=== PATIENT | male | born 1965 | race Caucasian/White ===

== ENCOUNTER 2018-12-31 04:54 | Emergency (ER) | payer MEDICAID ==
[~2018-12-31] VITALS: Ht 154.9 cm; Wt 74.8 kg
[~2018-12-31 04:54] MED LIST: GLUCOPHAGE1000 MG PO
[2018-12-31] MEDS ORDERED: LIPITOR10 MG PO (05:17)
[2018-12-31 06:02] LABS: ABSOLUTE BASOPHILS 0.1 thou/uL (0.0-0.2); ABSOLUTE EOSINOPHILS 0.3 thou/uL (0.0-0.7); ABSOLUTE LYMPHOCYTES 3.1 thou/uL (0.8-5.3); ABSOLUTE MONOCYTES 0.8 thou/uL (0.0-1.2); ABSOLUTE NEUTROPHILS 4.5 thou/uL (1.6-8.1); BASOPHILS 1.5 %; EOSINOPHILS 3.4 %; HEMATOCRIT 29.8 % (42.0-52.0); HEMOGLOBIN 9.4 gm/dL (14.0-18.0); LYMPHOCYTES 35.1 %; MCHC 31.8 g/dL (28.0-37.0); MCV 75.7 fL (80.0-100.0); MONOCYTES 9.2 %; NUCLEATED RBCS 0 /100WBC; PLATELET COUNT* 427 thou/uL (150-400); POLYS 50.8 %; RBC 3.93 mil/uL (4.50-6.00); RDW-CV 19.1 % (10.5-14.5); WBC 8.9 thou/uL (4.0-11.0)
[2018-12-31 06:05] LABS: AMP/METHAMP Negative (Negative); BARBITURATES Negative (Negative); BENZODIAZEPINES Negative (Negative); CALCIUM 8.6 mg/dL (8.5-10.1); COCAINE Negative (Negative); CREATININE 0.6 mg/dL (0.6-1.3); METHADONE Negative (Negative); OPIATES Negative (Negative); PCP Negative (Negative); POTASSIUM 3.9 mmol/L (3.5-5.1); THC Negative (Negative)
[2018-12-31 06:17] LABS: TOTAL BILIRUBIN 0.1 mg/dL (<0.1-1.0); TOTAL PROTEIN 7.1 g/dL (6.4-8.2)
[2018-12-31 06:37] LABS: ALCOHOL 200 mg/dL (<10); SALICYLATE < 2.8 mg/dL (2.8-20.0)
[2018-12-31 06:38] LABS: ACETAMINOPHEN < 2 ug/mL (10-30)
[2018-12-31 11:46] VITALS: BP 143/85
--- NOTE | 2019-01-01 16:58 | EKG ---
[place] [address] ELECTROCARDIOGRAM REPORT Name: TERESITA JUNIOR Room: [facility]#: [id number] Admission: 12/31/18 Attend Phys: Discharge: 12/31/18 Date of : 65 Report #: [id number] THIS REPORT FOR: //name// [facility] ED Test Date: 2018-12-31 Test Time: 05:24:31 Pat Name: TERESITA JUNIOR Department: Room: Gender: Outside Sales Advertising Executive: : 1965 Requested By: Daisha Saini Order Number: [id number] MD: Frank Sesay Measurements Intervals [place] Rate: 74 P: 37 WV: 189 QRS: -100 QRSD: 163 T: 2 QT: 403 QTc: 448 Interpretive Statements Sinus rhythm Probable left atrial enlargement RBBB and LAFB No previous ECG available for comparison Electronically Signed On 01-01-2019 16:57:51 CDT by Frank Sesay [email or web address] <ELECTRONICALLY SIGNED> By: Frank Sesay MD, [facility] 01/01/19 1657 [id number] [id number] Frank Sesay MD, [facility] /EPI
== END 2018-12-31 11:47 | disposition home or self-care (01) ==
LOC: M.ERS 04:54
PROVIDERS: Emergency Medicine
DX: F32.9 Major depressive disorder, single episode, unspecified (principal); G89.4 Chronic pain syndrome; R45.851 Suicidal ideations; E11.9 Type 2 diabetes mellitus without complications; Z86.14 Personal history of Methicillin resistant Staphylococcus aureus infection; Z86.19 Personal history of other infectious and parasitic diseases; Z79.899 Other long term (current) drug therapy

== ENCOUNTER 2020-10-28 12:57 | Inpatient (IN) | payer MEDICARE, MEDICAID ==
[~2020-10-28] VITALS: Ht 149.9 cm; Wt 81.6 kg
[~2020-10-28 12:57] MED LIST changes: +LIPITOR80 MG PO
[2020-10-28 13:13] VITALS: BP 117/69
[2020-10-28] MEDS ORDERED: TOPROL XL50 MG PO (13:17)
[2020-10-28 15:46] LABS: ABSOLUTE BASOPHILS 0.2 thou/uL (0.0-0.2); ABSOLUTE LYMPHOCYTES 1.5 thou/uL (0.8-5.3); ABSOLUTE MONOCYTES 1.6 thou/uL (0.0-1.2); ABSOLUTE NEUTROPHILS 14.5 thou/uL (1.6-8.1); BASOPHILS 0.8 %; EOSINOPHILS 0.3 %; HEMATOCRIT 29.1 % (42.0-52.0); HEMOGLOBIN 8.9 gm/dL (14.0-18.0); LYMPHOCYTES 8.4 %; MCH 22.4 pg (26.0-34.0); MCHC 30.7 g/dL (28.0-37.0); MCV 73.1 fL (80.0-100.0); MONOCYTES 9.2 %; MPV 7.4 fl. (7.2-11.1); NUCLEATED RBCS 0 /100WBC; PLATELET COUNT* 551 thou/uL (150-400); POLYS 81.3 %; RBC 3.98 mil/uL (4.50-6.00); RDW-CV 20.9 % (10.5-14.5); WBC 17.9 thou/uL (4.0-11.0)
[2020-10-28 15:56] LABS: CALCIUM 7.9 mg/dL (8.5-10.1); CREATININE 0.7 mg/dL (0.6-1.3); POTASSIUM 3.3 mmol/L (3.5-5.1)
[2020-10-28 16:01] LABS: ALBUMIN 2.1 g/dL (3.4-5.0); TOTAL BILIRUBIN 0.3 mg/dL (<0.1-1.0); TOTAL PROTEIN 7.9 g/dL (6.4-8.2)
[2020-10-28 16:41] LABS: POLYCHROMASIA 1+
[2020-10-28 16:42] LABS: HYPOCHROMASIA 2+; LARGE PLATELETS OCCASIONAL; MICROCYTES 1+; PLATELET ESTIMATE ADEQUATE
[2020-10-28 16:43] LABS: POIKILOCYTOSIS 1+
--- NOTE | 2020-10-28 17:45 | NUR ---
PT REFUSES TO GET INTO A PATIENT GOWN. THIS NURSE EXPLAINED THE IMPORTANCE OF WEARING A GOWN TO THE PATIENT. PT YELLING AND SAYING "I WILL NOT GET INTO A GOWN, I AM FINE IN MY SWEATSHIRT".
[2020-10-28 18:27] VITALS: BP 116/68
--- NOTE | 2020-10-28 19:04 | NUR ---
RECEIVED REPORT FROM OSORIO SORIA. NEW ADMIT. PT ANXIOUS. IV VANC RUNNING AT THIS TIME. CALL LIGHT WITHIN REACH. WILL CONTINUE TO MONITOR.
[2020-10-29 04:59] LABS: PREALBUMIN 8.9 mg/dL (18.0-35.7)
--- NOTE | 2020-10-29 05:08 | NUR ---
PATIENT IN ROOM AT SHIFT CHANGE. PT ALERT/ORIENTED X4. PT SAID HE LIVES WITH BROTHER AND SISTER INLDANNIE AND TRIPPED OVER HER ELDERLY DOG AND HURT HIS RT HEEL. PT HAS VERTICAL SPLIT ON HEEL AND SURROUNDING CELLULITIS. PT SAID WHEN HE LEFT TO COME TO ER HIS BROTHER SAID HE SHOULD NOT COME BACK AND FIND SOMEWHERE ELSE TO LIVE. PT SAID HE IS NOW HOMELESS. PT WITH VANC INFUSING IN RT FOREARM PER DR ORDER. IV LINE BEEPING AT BEGINNING OF SHIFT. TOUR GUIDE INSTRUCTED TO CHANGE IV LINE HOWEVER PT REFUSED TO HAVE ANOTHER LIKE STARTED. PT HAD REMOVED DSG PUT IN PLACE BY ER. NEW DSG PLACED AFTER PT SHOWERED THEN HE REMOVED IT. PT REFUSED TO KEEP ELEVATED. PT WITH HX OF MRSA; PLACED IN ISOLATION. PT ON SCHEDULED TYLENOL AND TORADOL. MORPHINE 8MG IV GIVEN Q4H FOR PAIN. PT SAID HE IS NON COMPLIANT WITH HIS DIABETES; REQUESTING FOOD ALL NIGHT; EDUCATION GIVEN. PT ANXIOUS AND FRUSTRATED SAYING NOTHING WOULD WORK FOR PAIN EXCEPT HYDROCODONE. PT ORIENTED TO ROOM/POLICIES AND VERBALIZES UNDERSTANDING. FREQUENTLY USED ITEMS AND CALL LIGHT WITHIN REACH. SIDERAILS UPX2. WILL CONTINUE TO MONITOR.
--- NOTE | 2020-10-29 05:19 | NUR ---
PATIENT REFUSING AT THIS TIME TO SIGN FALL AGREEMENT AND TO WEAR YELLOW SOCKS, YELLOW BAND AND BED ALARM ON MAKING HIM A FALL RISK. PT SAID HE HAS RIGHTS TO GET UP AND MOVE AROUND HE WANTS HE DOES THIS AT HOME. EDUCATION GIVEN. PT ALSO IS REFUSING AT THIS TIME TO HAVE PICTURE TAKEN OF RT HEEL. EXPLAINED TO PT THIS IS PUT ON CHART TO GUAGE HEALING ANTIBIOTICS ARE GIVEN. PT SAID HE IS IN TOO MUCH PAIN TONIGHT TO HAVE PICTURE TAKEN AND WILL NOT AGREE UNTIL HE DISCUSSES PAIN MEDICATION WITH THIS MORNING. WILL CONTINUE TO MONITOR.
[2020-10-29 05:31] LABS: CALCIUM 8.1 mg/dL (8.5-10.1); POTASSIUM 3.8 mmol/L (3.5-5.1); TOTAL BILIRUBIN 0.2 mg/dL (<0.1-1.0); TOTAL PROTEIN 7.8 g/dL (6.4-8.2)
[2020-10-29 07:50] VITALS: BP 127/78
[2020-10-29 07:55] LABS: ABSOLUTE BASOPHILS 0.2 thou/uL (0.0-0.2); ABSOLUTE EOSINOPHILS 0.3 thou/uL (0.0-0.7); ABSOLUTE LYMPHOCYTES 2.3 thou/uL (0.8-5.3); ABSOLUTE MONOCYTES 1.4 thou/uL (0.0-1.2); ABSOLUTE NEUTROPHILS 9.2 thou/uL (1.6-8.1); BASOPHILS 1.3 %; EOSINOPHILS 2.5 %; HEMATOCRIT 33.5 % (42.0-52.0); LYMPHOCYTES 17.4 %; MCH 22.1 pg (26.0-34.0); MCHC 29.9 g/dL (28.0-37.0); MCV 73.9 fL (80.0-100.0); MONOCYTES 10.4 %; MPV 7.9 fl. (7.2-11.1); NUCLEATED RBCS 0 /100WBC; POLYS 68.4 %; RBC 4.53 mil/uL (4.50-6.00); RDW-CV 20.5 % (10.5-14.5); WBC 13.4 thou/uL (4.0-11.0)
[2020-10-29 08:00] LABS: PLATELET COUNT* 356 thou/uL (150-400)
--- NOTE | 2020-10-29 11:02 | NUR ---
WOUND NURSE: PATIENT SEEN TO ADDRESS 2 LESIONS ON THE RIGHT HEEL. ONE ON THE MEDIAL ASPECT MEASURES 2.7 X 1.5 CM. UNABLE TO MEASURE DEPTH THE EPITHELIAL LAYER IS INTACT AND APPEARS PALE YELLOW TO LIGHT PINK IN COLOR, AND FEELS BOGGY. THE POSTERIOR LESION MEASURES 2.4 X 0.8 CM. BLACKENED ESCHAR COVERS THE WOUND BED. FOOT IS COLD BUT REDDENED. UNABLE TO PALPATE PEDAL PULSES. ATTEMPTED TO DOPPLER PULSES, BUT ABSENT ON RIGHT, MONOPHASIC AND DISTANT ON THE LEFT. PATIENT REPORTS HE WENT TO [place] 2 WEEKS AGO, THEN WENT TO [facility] LAST WEEK, BUT WAS DISSATISFIED WITH BOTH. PATIENT STATES HE HAD AN MRI OF THE AFFECTED FOOT AT [facility]. WOUNDS WERE CLEANSED WITH SOAP AND WATER, RINSED, THEN PATTED DRY. APPLIED AQUACEL AG UNDER ABD, THEN WRAPPED WITH KERLEX ROLL GAUZE AND SECURED WITH TAPE. PATIENT INSTRUCTED ON MEASURES TO PROMOTE HEALING, I.E., NUTRITIONAL NEEDES, S/S INFECTION, IMPORTANCE OF GOOD BG CONTROL. PATIENT DIPS SNUFF. INSTRUCTED HIM THAT SNUFF IS A VASOCONSTRICTOR AND WILL IMPEDE WOUND HEALING. PATIENT STATES HE UNDERSTANDS. ALSO DISCUSSED OFFLOADING THE WOUND.
--- NOTE | 2020-10-29 12:01 | NUR ---
Pt is A&O. Was living at home with brother and HELLEN, apparently he is unable to return there at [place]. CM to discuss dispo plans later, wound care seeing at this time. Pt is normally independent. Non compliant with his diabetes, refusing cares while here. IVABX. Podiatry and Wound care following. CM following for dispo needs.
[2020-10-29 16:02] VITALS: BP 144/96
--- NOTE | 2020-10-29 20:38 | NUR ---
Pt remained A&O x4 for entire shift. Pt pleasant with staff. Vital signs stable. Pt allowed wound care to take pictures and dress wound this morning. Pt also seen by podiatry at bedside. Pt cooperative with staff but non-compliant at times. Pt took off part of the bandage that was placed. Pt complains of pain in the right foot and given meds per AUG. Pt noted better pain control with oral pain medication. Bed in low position, call light within reach.
[2020-10-29 21:00] VITALS: BP 104/63
[2020-10-30 03:06] LABS: GLYCOHEMOGLOBIN (HGB A1C) 8.5 % (4.8-5.6)
[2020-10-30 05:32] LABS: CALCIUM 8.1 mg/dL (8.5-10.1); POTASSIUM 4.3 mmol/L (3.5-5.1)
--- NOTE | 2020-10-30 06:24 | NUR ---
PATIENT HAS SLEPT SOME DURING THE NIGHT, BUT RESTLESS PART OF THE NIGHT. VSS ON RA. PATIENT UP AD-KRISTINA AND REFUSES TO SIGN FALL RISK PAPERWORK, REFUSES BED ALARM, REFUSES FALL BAND, REFUSING TO WEAR YELLOW SOCKS AND REFUSING ASSISTANCE WHEN UP. PATIENT REFUSING LABS THIS AM AND OFFSET PRESS OPERATOR WAS ONLY ABLE TO DRAW ONE TUBE. UNABLE TO OBTAIN IV ACCESS DURING SHIFT. DR. CHINCHILLA NOTIFIED. PATIENT VERY NON COMPLIANT WITH CARES. PATIENT HAS REMAINED NPO SINCE MIDNIGHT D/T SCHEDULED PROCEDURE TODAY. DRESSING TO RIGHT FOOT IS C/D/I. PATIENT INSTRUCTED TO USE CALL LIGHT WHEN NEEDING ASSISTANCE AND HOURLY ROUNDS MADE. WILL CONTINUE WITH PLAN OF CARE AND NURSING TO MONITOR.
[2020-10-30 08:10] VITALS: BP 140/81
[2020-10-30 08:17] VITALS: BP 140/81
--- NOTE | 2020-10-30 12:04 | NUR ---
Pt refusing to lay flat for arteriogram this morning, to speak with. Continue IVABX, ID consult. MRI of foot. Picc line to be placed. Pt will likely need skilled at dc, if he opts to participate in his POC vs. discharge. CM to try and reach Pt's family to confirm that he is not allowed to return to their home at dc. Following.
[2020-10-30 16:49] LABS: ABSOLUTE BASOPHILS 0.1 thou/uL (0.0-0.2); ABSOLUTE EOSINOPHILS 0.4 thou/uL (0.0-0.7); ABSOLUTE LYMPHOCYTES 1.7 thou/uL (0.8-5.3); ABSOLUTE NEUTROPHILS 8.5 thou/uL (1.6-8.1); BASOPHILS 1.1 %; EOSINOPHILS 3.2 %; HEMATOCRIT 25.3 % (42.0-52.0); LYMPHOCYTES 14.6 %; MCH 22.2 pg (26.0-34.0); MCHC 30.5 g/dL (28.0-37.0); MCV 72.9 fL (80.0-100.0); MONOCYTES 8.4 %; MPV 7.4 fl. (7.2-11.1); NUCLEATED RBCS 0 /100WBC; POLYS 72.7 %; RBC 3.47 mil/uL (4.50-6.00); RDW-CV 19.9 % (10.5-14.5); WBC 11.7 thou/uL (4.0-11.0)
[2020-10-30 17:35] LABS: HEMOGLOBIN 7.7 gm/dL (14.0-18.0); PLATELET COUNT* 483 thou/uL (150-400)
--- NOTE | 2020-10-30 17:54 | NUR ---
PATIENT RESTING IN BED. PATIENT WENT FOR IR PROCEDURE THIS AM AND REFUSED IV AND TREATMENT AND WAS RETURNED TO ROOM. PATIENT SPOKE WITH AUGUSTINE AND WENT BACK TO IR AND WAS COOPERATIVE FOR PROCEDURE. PATIENT HAD PICC LINE PLACED. PATIENT REMAINED IN BED X 3 HOURS POST PROCEDURE AND SLEPT. PATIENT AWAKE THIS EVENIGN AND EATING DINNER. PATIENT AGAIN REFUSED MRI THIS EVENING. PATIENT IS HAVING COMPLAINTS OF PAIN, OXYCODONE GIVEN. GROIN SITE REMAINS SOFT AND DRY. WILL CONTINUE TO MONITOR.
[2020-10-30 17:59] LABS: ANISOCYTOSIS 1+; HYPOCHROMASIA 1+; MICROCYTES 1+; PLATELET ESTIMATE INCREASED
[2020-10-30 20:10] VITALS: BP 136/78
--- NOTE | 2020-10-30 20:10 | NUR ---
PT CRYING STATING HE NEEDS SOMETHING FOR PAIN. PICKING AT R HEEL WOUND, HAS TAKEN DRESSING OFF OF R FOOT AND UP AMBULATING, PACING BACK AND FORTH. PT WOULD NOT LET ME REDRESS HIS WOUND AT THIS TIME, "IM IN TOO MUCH PAIN, NONE OF THIS IS WORKING". IV MORPHINE GIVEN ORDERED, PT CONTINUES TO STATE "ITS NOT WORKING ITS NOT WORKING". INSTRUCTED PT TO ELEVATE FOOT ON PILLOW AND ALLOW MEDICINE TIME TO WORK. SNACKS GIVEN REQUESTED. L UPPER ARM PICC LINE DRSG ALMOST COMPLETELY TAKEN OFF- PT STATES I DIDNT DO THAT, THIS THING IS NOT GOOD ANYWAY. INSTRUCTED PT ONRISK FOR INFECTION IN PICC IF DRSG NOT KEPT INTACT AND NEED FOR ACCESS FOR IV ABX AND IV PAIN MEDS THROUGH PICC LINE. PICC SITE CLEANSED AND NEW DRSG APPLIED. WILL CONTINUE TO MONITOR AND PROVIDE CARES AND MEDS NEEDED AND ORDERED.
[2020-10-31 00:34] VITALS: BP 117/75
[2020-10-31 05:26] LABS: ABSOLUTE EOSINOPHILS 0.5 thou/uL (0.0-0.7); ABSOLUTE LYMPHOCYTES 1.9 thou/uL (0.8-5.3); ABSOLUTE MONOCYTES 1.2 thou/uL (0.0-1.2); ABSOLUTE NEUTROPHILS 8.4 thou/uL (1.6-8.1); BASOPHILS 0.4 %; HEMATOCRIT 24.4 % (42.0-52.0); HEMOGLOBIN 7.7 gm/dL (14.0-18.0); LYMPHOCYTES 15.6 %; MCH 22.9 pg (26.0-34.0); MCHC 31.5 g/dL (28.0-37.0); MCV 72.8 fL (80.0-100.0); MONOCYTES 10.3 %; MPV 7.8 fl. (7.2-11.1); NUCLEATED RBCS 0 /100WBC; PLATELET COUNT* 498 thou/uL (150-400); POLYS 69.7 %; RBC 3.36 mil/uL (4.50-6.00); RDW-CV 20.4 % (10.5-14.5); WBC 12.1 thou/uL (4.0-11.0)
--- NOTE | 2020-10-31 05:41 | NUR ---
PT CALMED SLIGHTLY AFTER START OF SHIFT, RECEIVING IV AND PO PAIN MED ORDERED. ABX GIVEN IN LUCIAN PICC ORDERED. AM LABS DRAWN. PT REMOVED L GROIN DRESSING OVERNIGHT BUT SITE HAS NO SIGNS OF BRUISING OR BLEEDING. ALLOWED THIS NURSE TO PUT GAUZE DRESSING WITH ALEXIS WRAP OVER IT ON HIS R FOOT WOUND. NONCOMPLIANT WITH RECOMMENDATIONS FOR ELEVATING FOOT, WEARING PRAFO BOOT. REMAINS ON CONTACT ISOLATION FOR MRSA HX. CALL LITE IN EASY REACH, ABLE TO USE CALL LITE AND MAKE NEEDS KNOWN.
[2020-10-31 05:45] LABS: ALBUMIN 1.9 g/dL (3.4-5.0); CALCIUM 7.9 mg/dL (8.5-10.1); CREATININE 1.2 mg/dL (0.6-1.3); POTASSIUM 4.5 mmol/L (3.5-5.1); TOTAL BILIRUBIN 0.2 mg/dL (<0.1-1.0); TOTAL PROTEIN 7.3 g/dL (6.4-8.2)
[2020-10-31 07:55] VITALS: BP 136/83
[2020-10-31] MEDS ORDERED: AMARYL1 MG PO (15:34)
[2020-10-31] MEDS ORDERED: CELEXA 20 MG TA20 MG PO (15:35)
[2020-10-31] MEDS ORDERED: SPIRONOLACTONE25 MG PO (15:35)
[2020-10-31] MEDS ORDERED: VITAMIN D3125 MC1 PO (15:36)
[2020-10-31] MEDS ORDERED: SKELAXIN 800 M800 MG PO (15:36)
[2020-10-31 16:00] VITALS: BP 138/79
--- NOTE | 2020-10-31 18:48 | NUR ---
PATIENT RESTING IN BED. PATIENT IS UP AD KRISTINA IN ROOM. PATIENT HAS COMPLAINTS OF FOOT PAIN TREATED ADEQUATELY WITH PERCOCET. PATIENT TRIED OXY IR THIS AFTERNOON BUT PREFERED THE PERCOCET, DR TORRES NOTIFIED AND ORDERS RECEIVED. PATIENT HAD MRI THIS AM WITHOUT INCIDENT. PATIENT CURRENTLY HAS DRESSING TO RIGHT FOOT BUT REMOVES FREQUENTLY. PATIENT DENIES ANY NEEDS AT THIS TIME. CALL LIGHT WITHIN REACH.
[2020-10-31 20:15] VITALS: BP 137/85
[2020-11-01 04:55] LABS: ABSOLUTE EOSINOPHILS 0.6 thou/uL (0.0-0.7); ABSOLUTE MONOCYTES 1.2 thou/uL (0.0-1.2); BASOPHILS 0.3 %; EOSINOPHILS 4.3 %; HEMATOCRIT 26.5 % (42.0-52.0); HEMOGLOBIN 8.1 gm/dL (14.0-18.0); MCH 22.4 pg (26.0-34.0); MCHC 30.6 g/dL (28.0-37.0); MCV 73.1 fL (80.0-100.0); MONOCYTES 9.2 %; MPV 7.5 fl. (7.2-11.1); NUCLEATED RBCS 0 /100WBC; PLATELET COUNT* 553 thou/uL (150-400); POLYS 70.2 %; RBC 3.63 mil/uL (4.50-6.00); RDW-CV 20.4 % (10.5-14.5); WBC 12.8 thou/uL (4.0-11.0)
--- NOTE | 2020-11-01 05:08 | NUR ---
PT REMAINS ON CONTACT ISOLATION FOR HX MRSA. R FOOT DIABETIC WOUND/CELLULITIS-WOUND CLEANSED AND DRESSED AT BEGINNING OF SHIFT BUT PT TOOK DRESSING OFF AFTER ABOUT AN HOUR STATING IT CAUSED HIS FOOT TO "BURN". EDUCATION GIVEN ABOUT ELEVATING R FOOT, NOT TOUCHING WOUND OR WALKING IN ROOM WITHOUT DRESSING ON IT-PT NONCOMPLIANT BUT CALMER TONIGHT THAN LAST NIGHT. CARON PICC SL, IV ABX GIVEN AND LABS DRAWN. RECEIVING PO PAIN MED EVERY 4 HOURS WITH FAIR RELIEF OVERNIGHT. UP AD KRISTINA IN ROOM-REFUSING FALL RISK PRECAUTIONS. VANC TROUGH TODAY AT 1500. GI TO CONSULT D/T ANEMIA, HGB 8.1 THIS MORNING. ABLE TO USE CALL LITE AND MAKE NEEDS KNOWN.
[2020-11-01 05:17] LABS: CREATININE 0.8 mg/dL (0.6-1.3); POTASSIUM 4.4 mmol/L (3.5-5.1); TOTAL BILIRUBIN 0.2 mg/dL (<0.1-1.0); TOTAL PROTEIN 7.9 g/dL (6.4-8.2)
[2020-11-01 05:32] LABS: PREALBUMIN 10.1 mg/dL (18.0-35.7)
[2020-11-01 06:35] LABS: PLATELET ESTIMATE ADEQUATE
[2020-11-01 08:00] VITALS: BP 136/84
[2020-11-01] MEDS ORDERED: KEFLEX250 MG PO (08:20)
[2020-11-01] MEDS ORDERED: DOXYCYCLINE 10100 MG PO (08:20)
[2020-11-01] MEDS ORDERED: PERCOCET 5-3251 EACH PO (08:21)
[2020-11-01] MEDS ORDERED: GABAPENTIN600 M1 PO (09:50)
[2020-11-01] MEDS ORDERED: FOLIC ACID1 MG PO (13:24)
[2020-11-01 16:53] VITALS: BP 147/90
[2020-11-01 17:10] VITALS: BP 147/90
[2020-11-01 17:17] VITALS: BP 147/90
[2020-11-01 18:00] VITALS: BP 147/90
--- NOTE | 2020-11-01 18:01 | NUR ---
PATIENT TRANSFERED AT THIS TIME VIA WHEELCHAIR TO [facility] ACCOMPANIED BY TRANSPORTER. PICC LINE DC'D, 2X2 GAUZE APPLIED TO AREA WITH PRESSURE AND TEGADERM. PICTURES TAKEN OF WOUNDS TO RIGHT FOOT/HEEL. BELONGINGS IN BAG. DISCHARGE INSTRUCTIONS REVIEWED AT THIS TIME. PATIENT ACKNOWLEDGE UNDERSTANDING. REPORT CALLED AND GIVEN TO ELIANE. NO QUESTIONS OR CONCERNS VOICED.
== END 2020-11-01 17:45 | DRG 602 ==
LOC: M.ERS 12:57 → M.ORTHSURG 15:33 → M.TBA-ER 15:33 → M.ORTHSURG 18:28
PROVIDERS: Family Medicine; Internal Medicine; ADMIT Internal Medicine; ATTEND Internal Medicine
PROC: B41D1ZZ Fluoroscopy of Aorta and Bilateral Lower Extremity Arteries using Low Osmolar Contrast (ICD-10-PCS; principal; 2020-10-30)
PROC: 02HV33Z Insertion of Infusion Device into Superior Vena Cava, Percutaneous Approach (ICD-10-PCS; 2020-10-30)
DX: L03.115 Cellulitis of right lower limb (principal); E43 Unspecified severe protein-calorie malnutrition; L97.419 Non-pressure chronic ulcer of right heel and midfoot with unspecified severity; E87.1 Hypo-osmolality and hyponatremia; R65.10 Systemic inflammatory response syndrome (SIRS) of non-infectious origin without acute organ dysfunction; I50.9 Heart failure, unspecified; I11.0 Hypertensive heart disease with heart failure; E87.6 Hypokalemia; E11.51 Type 2 diabetes mellitus with diabetic peripheral angiopathy without gangrene; E11.621 Type 2 diabetes mellitus with foot ulcer; E83.51 Hypocalcemia; D64.9 Anemia, unspecified; B19.20 Unspecified viral hepatitis C without hepatic coma; Z20.822 Contact with and (suspected) exposure to COVID-19; Z79.84 Long term (current) use of oral hypoglycemic drugs; Z68.36 Body mass index [BMI] 36.0-36.9, adult; Z79.899 Other long term (current) drug therapy

== ENCOUNTER → 2020-11-10 | Outpatient (CLI) | payer MEDICARE, MEDICAID ==
[~2020-11-10] MED LIST changes: +AMARYL1 MG PO; +CELEXA 20 MG TA20 MG PO; +DOXYCYCLINE 10100 MG PO; +FOLIC ACID1 MG PO; +GABAPENTIN600 M1 PO; +KEFLEX250 MG PO; +PERCOCET 5-3251 EACH PO; +SKELAXIN 800 M800 MG PO; +SPIRONOLACTONE25 MG PO; +TOPROL XL50 MG PO; +VITAMIN D3125 MC1 PO
== END ==
LOC: M.WC 08:00
PROVIDERS: ATTEND Surgery
DX: E11.621 Type 2 diabetes mellitus with foot ulcer (principal); I70.234 Atherosclerosis of native arteries of right leg with ulceration of heel and midfoot; L97.411 Non-pressure chronic ulcer of right heel and midfoot limited to breakdown of skin; E11.52 Type 2 diabetes mellitus with diabetic peripheral angiopathy with gangrene; I96 Gangrene, not elsewhere classified; I50.9 Heart failure, unspecified; G89.4 Chronic pain syndrome; Z79.84 Long term (current) use of oral hypoglycemic drugs

== ENCOUNTER → 2020-11-17 | Outpatient (CLI) | payer MEDICARE, MEDICAID | LOC: M.WC 09:24 | PROVIDERS: ATTEND Surgery | DX: E11.621 Type 2 diabetes mellitus with foot ulcer (principal); L97.411 Non-pressure chronic ulcer of right heel and midfoot limited to breakdown of skin; E11.52 Type 2 diabetes mellitus with diabetic peripheral angiopathy with gangrene; I96 Gangrene, not elsewhere classified; I50.9 Heart failure, unspecified; G89.4 Chronic pain syndrome ==